=== PATIENT | male | born 2005 | race Caucasian/White ===

== ENCOUNTER 2023-02-25 18:21 | Emergency (ER) | payer MEDICAID ==
[~2023-02-25] VITALS: Ht 175.3 cm; Wt 90.7 kg
[2023-02-25 18:56] VITALS: BP 115/55; PULSE 69; RESP 18; TEMP 97.6; O2SAT 98
[2023-02-25 20:00] VITALS: BP 115/55; PULSE 69; RESP 18; TEMP 97.6; O2SAT 98
--- NOTE | 2023-02-25 20:00 | NUR ---
Patient discharged with v/s stable. Written and verbal after care instructions given and explained. Patient verbalized understanding. Ambulatory with steady gait. All questions addressed prior to discharge. Advised to follow up with PMD.
== END 2023-02-25 20:00 | disposition home or self-care (01) ==
LOC: MED 18:21
DX: S11.91XD Laceration without foreign body of unspecified part of neck, subsequent encounter (principal); S01.411D Laceration without foreign body of right cheek and temporomandibular area, subsequent encounter; Z48.02 Encounter for removal of sutures; W26.0XXD Contact with knife, subsequent encounter
CPT/HCPCS: 99281